=== PATIENT | female | born 1945 | race Caucasian/White ===

== ENCOUNTER 2018-05-05 00:29 | Inpatient (IN) | payer OTHER ==
[~2018-05-05] VITALS: Ht 160 cm; Wt 77.1 kg
[~2018-05-05 00:29] MED LIST: AMLODIPINE BESYL5 M1 PO; ASPIRIN EC325 M2 PO; ATORVASTATIN CA10 M1 PO; COLACE100 M1 PO; DEXILANT60 M1 PO; DILAUDID2 M1 PO; GABAPENTIN100 M2 PO; LOSARTAN-HCTZ1 EAC2 PO; METFORMIN HCL500 M3 PO; MIRALAX17 G1 PO; MONTELUKAST SOD10 M1 PO; PROAIR HFA8.5 GM INH; RESTASIS1 EACH OPH; SYMBICORT 16010.2 GM INH; XYZAL5 M1 PO; ZYZOL PO
--- NOTE | 2018-05-05 13:40 | Admission Core Measures ---
Acute Coronary Syndrome (CM) ACS Core Measures Acute Coronary Syndrome Diagnosis No Congestive Heart Failure (NEW) CHF Core Measures Congestive Heart Failure Diagnosis No Cerebrovascular Accident CVA Core Measures CVA/TIA Diagnosis No Venous Thromboembolism VTE Core Dmitri (View Protocol) VTE Risk Factors Surgery No Mechanical VTE Prophylaxis d/t N/A MechProphylax Ordered No VTE Pharm Prophylaxis d/t NA PharmProphylax ordered Problem List As ranked by this Provider includes Assessment & Plan 1. Unilateral primary osteoarthritis, right knee HOME MEDS Home Med List Albuterol Sulfate (Proair Hfa) 8.5 GM HFA.AER.AD 2 PUF INH Q4-6 PRN PRN ASTHMA (Reported) Amlodipine Besylate 5 MG TABLET 1 TAB PO DAILY BP (Reported) Atorvastatin Calcium 10 MG TABLET 1 TAB PO DAILY CHOLESTEROL (Reported) Budesonide/Formoterol Fumarate (Symbicort 160-4.5 Mcg Inhaler) 10.2 GM HFA.AER.AD 2 PUF INH BID ASTHMA (Reported) Cyclosporine (Restasis) 0.05 % DROPERETTE 1 GTT OPH BID DRY EYE (Reported) Dexlansoprazole (Dexilant) 60 MG CAP.DRLucaBP 1 CAP PO DAILY GI (Reported) Gabapentin 100 MG CAPSULE 1 CAP PO DAILY PAIN (Reported) Levocetirizine Dihydrochloride (Xyzal) 5 MG TABLET 1 TAB PO DAILY UNKNOWN ( Reported) Losartan/Hydrochlorothiazide (Losartan-Hctz 100-25 MG Tab) 1 EACH TABLET 1 TAB PO DAILY BP (Reported) Metformin HCl 500 MG TABLET 1 TAB PO BID DM (Reported) Montelukast Sodium 10 MG TABLET 1 TAB PO DAILY ALLERGIES (Reported)
[2018-05-05] MEDS ORDERED: MIRALAX17 G1 PO (13:42)
[2018-05-05] MEDS ORDERED: ASPIRIN EC81 M1 PO (13:42)
[2018-05-05] MEDS ORDERED: DILAUDID2 M1 PO (13:42)
[2018-05-05] MEDS ORDERED: COLACE100 M1 PO (13:42)
--- NOTE | 2018-05-05 13:44 | Patient Discharge Instructions ---
Discharge Instructions General Discharge Information You were seen/treated for: Right knee osteoarthritis You had these procedures: Right total knee arthroplasty Watch for these problems: Fever over 100.4 Redness and swelling around wound Drainage from wound Unable to bear weight on right leg Chest pain or shortness of breath No bath, but you may shower: Yes Other wound care: Daily dry dressing change Keep incision clean and dry Diet Continue normal diet: Yes Activity Activity Self Limited: Yes Activity Limited to: Weight bear as tolerated (with rolling walker) Acute Coronary Syndrome Inclusion Criteria At DC or during hospital stay patient has or had the following: ACS DIAGNOSIS No Discharge Core Measures Meds if any: Prescribed or Continued at Discharge Meds if any: NOT Prescribed or Continued at Discharge Congestive Heart Failure Inclusion Criteria At DC or during hospital stay patient has or had the following: CHF DIAGNOSIS No Discharge Core Measures Meds if any: Prescribed or Continued at Discharge Meds if any: NOT Prescribed or Continued at Discharge Cerebrovascular accident Inclusion Criteria At DC or during hospital stay patient has or had the following: CVA/TIA Diagnosis No Discharge Core Measures Meds if any: Prescribed or Continued at Discharge Meds if any: NOT Prescribed or Continued at Discharge Venous thromboembolism Inclusion Criteria VTE Diagnosis No VTE Type NONE VTE Confirmed by (Test) NONE Discharge Core Measures - Per Current guidelines, there needs to be overlap - treatment for the first 5 days of Warfarin therapy. - If discharged on Warfarin prior to 5 days of - overlap therapy, the patient will need to be - assessed for post discharge needs including - *Post discharge parental anticoagulation - *Warfarin and/or parental anticoagulation education - *Follow up date to check INR post discharge At least 5 days overlap therapy as Inpatient No Meds if any: Prescribed or Continued at Discharge Note: Overlap Therapy is Warfarin and Anticoagulant Meds if any: NOT Prescribed or Continued at Discharge
--- NOTE | 2018-05-05 13:47 | Surgical Discharge Summary ---
Visit Information Visit Dates Admission Date: 05/05/18 Discharge Date: 05/08/18 History of Present Illness Chief Complaint: Right knee pain Medical History Neurological: NONE EENT: allergies Cardiovascular: hypertension Respiratory: asthma, obstructive sleep apnea Gastrointestinal: NONE Hepatic: NONE Renal: NONE Musculoskeletal: osteoarthritis Psychiatric: NONE Endocrine: NONE Blood Disorders: DVT, LLE 45 YRS AGO Cancer(s): NONE COMMODITIES MANAGER/Reproductive: NONE History of MRSA: No History of VRE: No History of CDIFF: No Pneumonia Vaccine: 05/17/13 Surgical History Pertinent Surgical History: BOWEL RESECTION, APPY, TONGUE BIOPSY, TRIGGER FINGER REPAIR, CARPAL TUNNEL REPAIR, KNEE SCOPE Psychosocial History Who Do You Live With? Spouse Services at Home: None What is Your Primary Language? Armenian Review of Systems: As per [facility] Hospital Course Course Attending Physician: Raman Saavedra MD Primary Care Physician: Radha Borjas MD Hospital Course: Patient tolerated elective right total knee arthroplasty well. Postoperatively she was tolerating regular diet, voiding spontaneously, pain was well managed, and she was including with physical therapy using a rolling walker. Patient was cleared for discharge to home with health services. Discharge instructions were reviewed with the patient. She was given instructions to follow-up with Dr. Saavedra in 6 weeks and to call his office sooner with any questions or concerns Allergies: Coded Allergies: Penicillins (Severe, TONGUE SWELLING 04/04/16) hepatitis B virus vaccine (UNKNOWN 04/04/16) lisinopril (UNKNOWN 04/04/16) red yeast rice (UNKNOWN 04/30/18) prednisone (Intermediate, COUGH 05/04/18) Significant Procedures: Right total knee arthroplasty Disposition Summary Disposition Principal Diagnosis: Right knee osteoarthritis Additional Diagnosis: Same Discharge Disposition: home health services Discharge Instructions General Discharge Information Code Status: Full Code Patient's Diet: Regular Patient's Activity: Weight-bear as tolerated with a rolling walker Follow-Up Instructions/Appts: Patient is to follow-up with Dr. Saavedra in 6 weeks. She was given instructions to call sooner with any questions or concerns Medications at Discharge Discharge Medications: Continue taking these medications: Losartan/Hydrochlorothiazide (Losartan-Hctz 100-25 MG Tab) 1 EACH TABLET 1 Tablet ORAL DAILY Comments: LAST GIVEN 05/08/18 @ 0800 Amlodipine Besylate (Amlodipine Besylate) 5 MG TABLET 1 Tablet ORAL DAILY Comments: LAST GIVEN 05/08/18 @ 0800 Levocetirizine Dihydrochloride (Xyzal) 5 MG TABLET 1 Tablet ORAL DAILY Comments: NOT GIVEN Montelukast Sodium (Montelukast Sodium) 10 MG TABLET 1 Tablet ORAL DAILY Comments: LAST GIVEN 05/08/18 @ 0800 Budesonide/Formoterol Fumarate (Symbicort 160-4.5 Mcg Inhaler) 10.2 GM HFA.AER.AD 2 Puff Inhale through mouth TWICE DAILY Comments: LAST GIVEN 05/08/18 @ 0800 Albuterol Sulfate (Proair Hfa) 8.5 GM HFA.AER.AD 2 Puff Inhale through mouth EVERY 4-6 HOURS NEEDED as needed for ASTHMA Comments: LAST GIVEN 05/08/18 @ 0720 Dexlansoprazole (Dexilant) 60 MG CAP.BP 1 Capsule ORAL DAILY Metformin HCl (Metformin HCl) 500 MG TABLET 1 Tablet ORAL TWICE DAILY Comments: LAST GIVEN 05/08/18 @ 0800 Atorvastatin Calcium (Atorvastatin Calcium) 10 MG TABLET 1 Tablet ORAL DAILY Comments: LAST GIVEN 05/08/18 @ 0800 Gabapentin (Gabapentin) 100 MG CAPSULE 1 Capsule ORAL DAILY Instructions: 1-2 CAP PRN Cyclosporine (Restasis) 0.05 % DROPERETTE 1 Drop In the eye TWICE DAILY Comments: LAST GIVEN 05/08/18 @ 0800 Start taking the following new medications: Aspirin (Ecotrin*) 81 MG TABLET.DR 1 Tablet ORAL TWICE DAILY Qty = 60 No Refills Comments: LAST GIVEN 05/08/18 @ 0800 Docusate Sodium (Colace) 100 MG CAPSULE 1 Capsule ORAL TWICE DAILY Qty = 14 No Refills Instructions: STOP TAKING IF YOU DEVELOP LOOSE STOOL/DIARRHEA Comments: LAST GIVEN 05/08/18 @ 0800 Hydromorphone HCl (Dilaudid) 2 MG TABLET 1-2 Tablet ORAL EVERY 4-6 HOURS NEEDED as needed for PAIN Qty = 36 No Refills Comments: LAST GIVEN 05/08/18 @ 0800 Polyethylene Glycol 3350 (Miralax) 17 GRAM POWD.PACK 1 Packet ORAL DAILY Qty = 7 No Refills Instructions: dissolve in water. STOP TAKING IF YOU DEVELOP LOOSE STOOL/DIARRHEA Comments: LAST GIVEN 05/08/18 @ 0800 Copies To: [place] TRAORE,Radha Kaur
--- NOTE | 2018-05-05 15:32 | Operative Report ---
Operative/Inv Procedure Report Surgery Date: 05/05/18 Name of Procedure: Right total knee replacement Pre-Operative Diagnosis: Primary right knee DJD Post-Operative Diagnosis: Same Estimated Blood Loss: 50ml to 100ml Surgeon/Switch Inspector: Keri TRAORE,Raman Fields Anesthesia: block Operative/Procedure Note Note: Description of Procedure: The patient was taken to the operating room and positively identified. After induction of spinal anesthesia and administration of appropriate pre-operative antibiotics, the patient was positioned supine on the operating room table and all bony prominences were well padded. A well-padded pneumatic tourniquet was placed on the right upper thigh. After performing a surgical timeout, the right lower extremity was prepped and draped in the usual sterile fashion. After exsanguination with Esmarch the tourniquet was inflated to 250mm of mercury. A standard medial parapatellar approach was made to the knee. This was carried down through skin and subcutaneous tissue to the level of the fascia. Meticulous hemostasis was maintained with Bovie electrocautery. The extensor mechanism and patellar retinaculum were opened sharply and the patella was everted. The infrapatellar fat was resected in order to improve exposure. Osteophytes were trimmed from the patella and femoral condyles and the patella was re-everted and tucked laterally. A medial release was performed and the cruciate ligaments were resected. The tibia was then subluxed anteriorly. Utilizing the appropriate extra-medullary guide, the proximal tibia was trimmed perpendicular to the long axis of the tibial shaft. Attention was then turned to the femur. After opening the medullary canal, the distal femoral cut was made in 6 degrees of valgus utilizing the appropriate intra-medullary guide. The extension gap was checked and found to be appropriate. The femur was then sized and the remainder of the femoral cuts were made with a size 3 4-in-1 femoral cutting guide. The flexion gap was checked and found to be symmetric and appropriate. The knee was then trialed with a size 3 femoral component, a size 3 tibial component and a size 13 mm polyethylene insert. The patella was trimmed to accept an A 32 patella. This yielded excellent range of motion, stability and patellar tracking. All trial components were removed and the knee was copiously irrigated with sterile saline. All components were cemented into place with [place] Simplex cement. All the components were of the Graciela Triathlon knee system of the above stated sizes. The knee was again irrigated after cementation. The extensor mechanism and patellar retinaculum were repaired using interrupted #1 vicryl suture. The skin was re-approximated with 2-0 vicryl and closed with pietro. A sterile dressing was applied, the tourniquet was deflated, the patient was awakened and taken to the recovery room in satisfactory condition.
--- NOTE | 2018-05-05 15:54 | PN- Orthopedic ---
Subjective Subjective: POST-OP NOTE Reports pain improved from earlier. Previous headache has resolved. Currently in pacu. Not yet out of bed. No dizziness. No shortness of breath. No chest pains. Objective Vital Signs and I&Os pacu flowsheet reviewed, vitals stable Physical Exam: General - alert & oriented x 3. comfortable. no acute distress. Lungs - clear bilaterally. no w/r/r. Cardiac - s1s2. reg. Abdomen - soft. nontender. Extremities - warm bilaterally, right knee dressing c/d/i. ice pack in place over right knee. nvi. Current Medications: Current Medications Sig/Duncan Start time Last Medication Dose Route Stop Time Status Admin Acetaminophen 0 .STK-MED ONE 05/05 1151 DC PO Acetaminophen 975 MG ONCE 05/05 0000 NR PO 05/05 2359 Fentanyl Citrate 0 .STK-MED ONE 05/05 1115 DC .ROUTE Midazolam HCl 0 .STK-MED ONE 05/05 1116 DC .ROUTE Midazolam HCl 0 .STK-MED ONE 05/05 0859 DC .ROUTE Morphine Sulfate 0 .STK-MED ONE 05/05 0859 DC .ROUTE Oxycodone HCl 0 .STK-MED ONE 05/05 1151 DC PO Oxycodone HCl 10 MG ONCE 05/05 0000 NR PO 05/05 2359 Tranexamic Acid 0 .STK-MED ONE 05/05 0900 DC IV Vancomycin HCl 1,500 MG ONCE 05/05 0000 NR Sodium Chloride 250 ML IV 05/05 2359 Assessment/Plan Assessment/Plan This 72 year old female with hx htn, hld, dm, asthma, gerd, gabby with cpap, is POD#0 s/p right total knee replacement for primary right knee DJD advance diet as tolerated pain control as ordered awaiting PT eval asa 81mg BID - dvt ppx home meds ordered nicolasa-operative vanco x 1 f/u AM labs dressing change POD#2 d/c planning in a few days will d/w Core Measures Venous Thromboembolism VTE Risk Factors Surgery No Mechanical VTE Prophylaxis d/t N/A MechProphylax Ordered No VTE Pharm Prophylaxis d/t NA PharmProphylax ordered
[2018-05-05 17:00] VITALS: BP 156/74
[2018-05-05 19:00] VITALS: BP 148/60
[2018-05-05 21:00] VITALS: BP 150/60
[2018-05-05 23:00] VITALS: BP 148/72
[2018-05-06 03:02] VITALS: BP 151/76
[2018-05-06 07:01] VITALS: BP 144/69
[2018-05-06 08:32] LABS: ABSOLUTE BASOPHIL COUNT 0 /CUMM (0.0-0.2); ABSOLUTE EOSINOPHIL COUNT 0 /CUMM (0.0-0.7); ABSOLUTE GRANULOCYTE CT 6.4 /CUMM (1.4-6.5); ABSOLUTE LYMPH COUNT 1.6 /CUMM (1.2-3.4); BASOPHIL % 0.4 % (0.0-2.0); EOSINOPHIL % 0.1 % (0-5); GRANULOCYTE % 70.9 % (42.2-75.2); HEMATOCRIT 33.8 % (37-47); MEAN CORPUSCULAR HGB 31.3 PG (27.0-31.0); MEAN CORPUSCULAR HGB CONC 34.3 G/DL (33.0-37.0); MEAN CORPUSCULAR VOLUME 91.4 FL (81.0-99.0); MEAN PLATELET VOLUME 8.6 FL (7.4-10.4); PLATELET COUNT 167 /CUMM (130-400); RBC DISTRIBUTION WIDTH 13.1 % (11.5-14.5); RED BLOOD CELL CT 3.69 /CUMM (4.20-5.40)
--- NOTE | 2018-05-06 11:09 | PN- Orthopedic ---
Subjective Subjective: No events overnight. Admits to an asthma attack this am that resolved with her rescue inhaler. Admits to mild right knee pain that is controlled. Just walked around the unit and is currently out of bed to the chair. Denies any numbness or tingling. Denies any calf pain. Tolerating her regular diet without nausea or emesis. Voiding freely. Objective Vital Signs and I&Os Vital Signs Date Time Temp Pulse Resp B/P B/P Pulse O2 O2 Flow FiO2 Mean Ox Delivery Rate 05/06 0904 99 128/62 05/06 0903 99 128/62 05/06 0701 97.5 95 20 144/69 97 05/06 0302 97.8 88 20 151/76 97 05/06 0014 95 CPAP Room Air 05/05 2352 Room Air Room Air 05/05 2350 95 Room Air Room Air 05/05 2300 98.5 95 20 148/72 94 CPAP 05/05 2100 98.0 101 20 150/60 94 Room Air 05/05 1900 98.9 110 20 148/60 94 Room Air 05/05 1700 98.5 100 18 156/74 94 Room Air Intake & Output 05/06 1600 05/06 0800 05/06 0000 05/05 1600 05/05 0800 05/05 0000 Intake Total 48 480 Output Total 600 Balance 48 -120 Intake, Oral 48 480 Output, Urine 600 Patient 170 lb Weight Weight Reported by Patient Measurement Method Physical Exam: Afebrile, VSS. RLE: Dressing c/d/i. No drainage noted. Mild knee and thigh edema noted, thigh soft and compressible. No calf tenderness to palpation, negative Jim's. Motor and sensation grossly intact. Able to plantarflex/dorsiflex. Assessment/Plan Assessment/Plan A/P: 72 y/o female with PMHx of htn, hld, dm, asthma, gerd, gabby with cpap, who is POD#1 s/p right total knee replacement for primary right knee DJD. Stable post operatively. - Continue diet as tolerated - d/c IVF - Hypokalemia - 40 meq once - Pain control as ordered - PT following - WBAT to RLE - Home medications resumed - Dressing change POD # 2 - DVT ppx - ASA 81 mg BID - will d/w Dr. Saavedra Core Measures Venous Thromboembolism VTE Risk Factors Surgery No Mechanical VTE Prophylaxis d/t N/A MechProphylax Ordered No VTE Pharm Prophylaxis d/t NA PharmProphylax ordered
[2018-05-06 14:17] VITALS: BP 152/62
[2018-05-06 21:49] VITALS: BP 131/69
[2018-05-07 07:00] VITALS: BP 146/62
--- NOTE | 2018-05-07 08:53 | PN- Orthopedic ---
Subjective Subjective: Patient reports postop pain controlled. Reports ambulating with PT. Denies numbness, tingling. Tolerating a diabetic diet. She denies any further asthma attacks since yesterday. Objective Vital Signs and I&Os Vital Signs Date Time Temp Pulse Resp B/P B/P Pulse O2 O2 Flow FiO2 Mean Ox Delivery Rate 05/07 926 96 146/62 05/07 0926 96 146/62 05/07 0753 94 Room Air Room Air 05/07 0700 97.5 96 16 146/62 93 05/07 0000 92 CPAP 05/06 2149 99.0 92 16 131/69 92 Room Air 05/06 2106 92 Room Air 05/06 1417 97.6 82 20 152/62 92 Room Air Intake & Output 05/07 1600 05/07 0800 05/07 0000 05/06 1600 05/06 0800 05/06 0000 Intake Total 340 825 288 480 Output Total 300 400 600 Balance 340 525 -112 -120 Intake, IV 100 125 Intake, Oral 240 700 288 480 Number 0 0 Bowel Movements Output, Urine 300 400 600 Physical Exam: Gen - nad Cardiac - S1S2 noted Lungs - CTAB Abd - soft, nontender Ext - RLE dressing c/d/i, incision clsoed with pietro healing well with mild edema, appropriately tender, redressed, compartment soft, moves all extremities, motor and sensory intact, L alp in place, no edema or calf pain Current Medications: Current Medications Sig/Duncan Start time Last Medication Dose Route Stop Time Status Admin Acetaminophen 1,000 MG Q6 05/05 1800 DC 05/06 IV 05/06 1201 1129 Albuterol Sulfate 3 ML Q4-PRN PRN 05/06 0015 AC INH Albuterol Sulfate 2 PUF Q4-6 PRN PRN 05/05 1745 AC 05/07 INH 0217 Amlodipine Besylate 5 MG DAILY 05/06 900 AC 05/07 PO 925 Artificial Tears 2 GTT BID 05/05 2100 AC 05/07 OPH 27 Aspirin 81 MG BID 05/05 2100 AC 05/07 PO 926 Atorvastatin Calcium 10 MG DAILY 05/06 900 AC 05/07 PO 925 Budesonide/ 2 PUF BID 05/05 2100 AC 05/07 Formoterol Fumarate INH 0924 Dextrose/Sodium 1,000 ML .[id number] 05/05 1745 DC 05/06 Chloride IV 0754 Docusate Sodium 100 MG BID 05/05 2100 AC 05/07 PO 09 Hydromorphone HCl 2 MG Q4P PRN 05/05 174 AC PO Hydromorphone HCl 4 MG Q4P PRN 05/05 174 AC 05/07 PO 0230 Losartan Potassium 100 MG DAILY 05/06 09 AC 05/07 PO 09 Metformin HCl 500 MG BID 05/05 2100 AC 05/07 PO 925 Montelukast Sodium 10 MG DAILY 05/06 09 AC 05/07 PO 0923 Morphine Sulfate 2 MG Q2P PRN 05/05 174 AC IV Omeprazole 40 MG DAILY AC 05/06 07 AC 05/07 PO 0708 Ondansetron HCl 4 MG Q6P PRN 05/05 1745 AC IV Polyethylene Glycol 17 GM DAILY 05/06 900 AC 05/07 PO 09 Results Last 48 Hours of Labs: Laboratory Tests 05/07 05/06 0625 0728 Chemistry Sodium (137 - 145 mmol/L) 140 140 Potassium (3.5 - 5.1 mmol/L) 3.4 L 3.0 L Chloride (98 - 107 mmol/L) 102 105 Carbon Dioxide (22 - 30 mmol/L) 28 25 Anion Gap (5 - 16) 10 9 BUN (7 - 17 mg/dL) 13 12 Creatinine (0.5 - 1.0 mg/dL) 0.5 0.5 Estimated GFR (>60 ml/min) > 60 > 60 BUN/Creatinine Ratio (7 - 25 %) 26.0 H 24.0 Magnesium (1.6 - 2.3 mg/dL) 1.4 L Hematology CBC w Diff NO MAN DIFF REQ WBC (4.8 - 10.8 /CUMM) 9.0 RBC (4.20 - 5.40 /CUMM) 3.69 L Hgb (12.0 - 16.0 G/DL) 11.6 L Hct (37 - 47 %) 33.8 L MCV (81.0 - 99.0 FL) 91.4 MCH (27.0 - 31.0 PG) 31.3 H MCHC (33.0 - 37.0 G/DL) 34.3 RDW (11.5 - 14.5 %) 13.1 Plt Count (130 - 400 /CUMM) 167 MPV (7.4 - 10.4 FL) 8.6 Gran % (42.2 - 75.2 %) 70.9 Lymphocytes % (20.5 - 51.1 %) 17.7 L Monocytes % (1.7 - 9.3 %) 10.9 H Eosinophils % (0 - 5 %) 0.1 Basophils % (0.0 - 2.0 %) 0.4 Absolute Granulocytes (1.4 - 6.5 /CUMM) 6.4 Absolute Lymphocytes (1.2 - 3.4 /CUMM) 1.6 Absolute Monocytes (0.10 - 0.60 /CUMM) 1.0 H Absolute Eosinophils (0.0 - 0.7 /CUMM) 0 Absolute Basophils (0.0 - 0.2 /CUMM) 0 Assessment/Plan Assessment/Plan 72 F POD 2 s/p R TKR for primary right knee DJD, recovering well Ada diet Pain regimen prn K repleted yesterday DVT ppx - alps, asa 81 bid Home meds on board OOB w/ PT, WBA TRC, encourage IS Daily dry dressing changes Anticipate d/c home w/ hhs today vs tomorrow Core Measures Venous Thromboembolism VTE Risk Factors Surgery No Mechanical VTE Prophylaxis d/t N/A MechProphylax Ordered No VTE Pharm Prophylaxis d/t NA PharmProphylax ordered
[2018-05-07 14:00] VITALS: BP 141/54
[2018-05-07 20:43] VITALS: BP 133/69
[2018-05-08 06:51] VITALS: BP 139/84
--- NOTE | 2018-05-08 07:07 | PN- Orthopedic ---
Subjective Subjective: Patient comfortable, no acute events overnight, pain well controlled, no fever no flulike illness Objective Vital Signs and I&Os Vital Signs Date Time Temp Pulse Resp B/P B/P Pulse O2 O2 Flow FiO2 Mean Ox Delivery Rate 05/08 0651 98.8 91 20 139/84 95 Room Air 05/07 2043 98.3 97 18 133/69 97 CPAP 05/07 1949 95 Room Air Room Air 05/07 1600 98.9 92 05/07 1400 99.4 104 18 141/54 97 Room Air 05/07 0926 96 146/62 05/07 0926 96 146/62 05/07 0753 94 Room Air Room Air Intake & Output 05/08 0800 05/08 0000 05/07 1600 05/07 0800 05/07 0000 05/06 1600 Intake Total 600 620 340 825 Output Total 600 350 300 Balance -600 250 620 340 525 Intake, IV 100 125 Intake, Oral 600 620 240 700 Number 1 0 Bowel Movements Output, Urine 600 350 300 Physical Exam: Well-developed well-nourished no apparent distress. HEENT: Atraumatic, extraocular motion intact Neck: Supple, no lymphadenopathy Respiratory: No respiratory distress Extremities: No edema RIGHT lower extremity dressing in place, Incision line is clean dry and intact Mild joint effusion Range of motion is 5-[address] ALPS in place Neurovascularly intact distally Bilateral calves are supple, nontender. Neuro: Alert and oriented x3 Psych: Mood affect normal, normal memory normal judgment. Skin: Warm and dry, no rash on exposed skin Assessment/Plan Assessment/Plan Postop day #3 status post right total knee arthroplasty Orthopedically stable for discharge home today, continue aspirin for DVT prophylaxis, pain medication as needed, home PT/VNA services are required Patient to work on range of motion, discussed possibility of extension lag, home exercise reviewed Core Measures Venous Thromboembolism VTE Risk Factors Surgery No Mechanical VTE Prophylaxis d/t N/A MechProphylax Ordered No VTE Pharm Prophylaxis d/t NA PharmProphylax ordered
[2018-05-08 08:10] VITALS: BP 139/84
== END 2018-05-08 12:10 | disposition home health service (06) | DRG 470 ==
LOC: 2NB 00:29 → SDA 00:29 → ENRESERV 15:31 → ENTRNSPT 15:58 → EDTRNSPT 16:15 → EDTRNSPTSTS 16:15 → 2NB 16:25 → CMPTRNSPT 16:26 → ENTRNSPT 05-08 11:45 → EDTRNSPTSTS 05-08 12:05 → EDTRNSPT 05-08 12:05 → 2NB 05-08 12:10 → CMPTRNSPT 05-08 12:24
PROVIDERS: Physician Assistant Surgical
PROC: 0SRC069 Replacement of Right Knee Joint with Oxidized Zirconium on Polyethylene Synthetic Substitute, Cemented, Open Approach (ICD-10-PCS; principal; 2018-05-05)
PROC: 3E0T3BZ Introduction of Anesthetic Agent into Peripheral Nerves and Plexi, Percutaneous Approach (ICD-10-PCS; 2018-05-05)
DX: M17.11 Unilateral primary osteoarthritis, right knee (principal); G47.33 Obstructive sleep apnea (adult) (pediatric); J45.909 Unspecified asthma, uncomplicated; E11.9 Type 2 diabetes mellitus without complications; I10 Essential (primary) hypertension; K21.9 Gastro-esophageal reflux disease without esophagitis; Z90.49 Acquired absence of other specified parts of digestive tract; Z88.0 Allergy status to penicillin; Z88.7 Allergy status to serum and vaccine; Z88.8 Allergy status to other drugs, medicaments and biological substances; Z91.018 Allergy to other foods; Z79.84 Long term (current) use of oral hypoglycemic drugs; Z86.718 Personal history of other venous thrombosis and embolism
CPT/HCPCS: 2NBSP; 36592; 82436; 97110-GO; 97116-GO; 97161-GP; 97530-GO; C1713; C9290; J0131; J3370; J3490; J7040; J7042